=== PATIENT | male | born 1995 | race Caucasian/White ===

== ENCOUNTER 2020-06-26 04:00 | Emergency (ER) | payer SELFPAY ==
[~2020-06-26] VITALS: Ht 167.6 cm; Wt 67.4 kg
[2020-06-26 04:07] VITALS: BP 124/61
--- NOTE | 2020-06-26 04:14 | NUR ---
PT TAKEN TO BED 12
--- NOTE | 2020-06-26 04:18 | NUR ---
PATIENT PRESENTS TO ED WITH ABDMONINAL PAIN . PT STATES DIFFICULTY URINATING, AND PEEING MORE OFTEN. DENIES N/V/D; SKIN IS PINK/WARM/DRY; AAOX4 WITH EVEN AND STEADY GAIT; LUNGS CLEAR BL; HR EVEN AND REGULAR; PT DENIES ANY FEVER, CP, SOB, OR COUGH AT THIS TIME; PATIENT STATES PAIN OF 5/10 THAT FEELS LIKE PRESSURE AT THIS TIME; VSS; PATIENT POSITIONED FOR COMFORT; HOB ELEVATED; BEDRAILS UP X2; BED DOWN. ER MD MADE AWARE OF PT STATUS. PMH: N/A ALLERGIES: NKA
--- NOTE | 2020-06-26 04:22 | NUR ---
AT BEDSIDE FOR EXAMINATION
--- NOTE | 2020-06-26 04:46 | NUR ---
XRAY AT BEDSIDE
--- NOTE | 2020-06-26 05:00 | NUR ---
URINE SENT TO LAB, RECEIVED BY MALIK SULTANA
[2020-06-26] MEDS ORDERED: CEPH500C16 PO (05:05)
[2020-06-26] MEDS ORDERED: PHEN-1593 PO (05:06)
--- NOTE | 2020-06-26 05:20 | NUR ---
Patient discharged with v/s stable. Written and verbal after care instructions given and explained. Patient alert, oriented and verbalized understanding of instructions. Ambulatory with steady gait. All questions addressed prior to discharge. ID band removed. Patient advised to follow up with PMD. Rx of KEFLEX AND PYRIDIUM given. Patient educated on indication of medication including possible reaction and side effects. Opportunity to ask questions provided and answered.
[2020-06-26 05:21] VITALS: BP 105/53
== END 2020-06-26 05:20 | disposition home or self-care (01) ==
LOC: MED 04:00
DX: R30.0 Dysuria (principal)
CPT/HCPCS: 36415; 74018; 81002; 87491; 99284

== ENCOUNTER 2022-12-21 15:34 | Emergency (ER) | payer MEDICAID ==
[~2022-12-21] VITALS: Ht 167.6 cm; Wt 81.7 kg
[~2022-12-21 15:34] MED LIST: CEPH500C16 PO; PHEN-1593 PO
[2022-12-21 15:48] VITALS: BP 143/87; PULSE 105; RESP 20; TEMP 98.6; O2SAT 98
[2022-12-21] MEDS ORDERED: IBUP-1842 PO (16:28)
== END 2022-12-21 16:32 | disposition home or self-care (01) ==
LOC: MED 15:34
DX: S39.012A Strain of muscle, fascia and tendon of lower back, initial encounter (principal); X58.XXXA Exposure to other specified factors, initial encounter; Y93.89 Activity, other specified; Y92.89 Other specified places as the place of occurrence of the external cause; Y99.8 Other external cause status
CPT/HCPCS: 99282

== ENCOUNTER 2023-06-07 15:11 | Emergency (ER) | payer MEDICAID, OTHER ==
[~2023-06-07] VITALS: Ht 167.6 cm; Wt 84.4 kg
[~2023-06-07 15:11] MED LIST changes: +IBUP-1842 PO
[2023-06-07 15:13] VITALS: BP 134/80; PULSE 98; TEMP 98.7; O2SAT 98
[2023-06-07] MEDS ORDERED: LID5T TP (15:59)
[2023-06-07] MEDS ORDERED: CYCL-711 PO (15:59)
[2023-06-07] MEDS ORDERED: NAPR-54 PO (15:59)
[2023-06-07] MEDS: IBUPROFEN 600 MG TAB PO ONE (16:03)
== END 2023-06-07 16:05 | disposition home or self-care (01) ==
LOC: MED 15:11
DX: M25.511 Pain in right shoulder (principal); Z79.899 Other long term (current) drug therapy; V49.88XA Car occupant (driver) (passenger) injured in other specified transport accidents, initial encounter; Y93.89 Activity, other specified; Y92.89 Other specified places as the place of occurrence of the external cause; Y99.8 Other external cause status
CPT/HCPCS: 73030; 99283